=== PATIENT | female | born 1970 | race Caucasian/White ===

== ENCOUNTER 2018-05-08 20:11 | Emergency (ER) | payer MEDICAID ==
[~2018-05-08] VITALS: Ht 170.2 cm; Wt 82.0 kg
[~2018-05-08 20:11] MED LIST: BACL20TA PO; CLON2TAB11 PO; CYM20 PO; GABA-531 PO; OXYC-159 PO; RIVA20TA PO
[2018-05-08] MEDS ORDERED: HYDROMORPHONE HCL/PF 2MG/ML CPJ IV ONE (20:45)
[2018-05-08] MEDS ORDERED: DIPHENHYDRAMINE 25MG CAPSULE PO ONE (20:45)
[2018-05-08] MEDS ORDERED: ONDANSETRON HCL 4MG/2ML INJ IV ONE (20:45)
[2018-05-08] MEDS ORDERED: HYDROMORPHONE HCL/PF 2MG/ML CPJ IV SCH (21:30)
[2018-05-08] MEDS ORDERED: OXYCODONE HCL/ACETAMINOPHEN 5/325MG TABLET PO ONE ×2 (23:15→23:45)
[2018-05-08 23:21] LABS: CLARITY URINE CLEAR (CLEAR); COLOR URINE YELLOW (YELLOW); KETONES URINE NEGATIVE (NEGATIVE); LEUKOCYTE ESTERASE URINE 2+ (NEGATIVE); NITRITE URINE POSITIVE (NEGATIVE); OCCULT BLOOD URINE TRACE (NEGATIVE); PROTEIN URINE NEGATIVE (NEGATIVE); SPECIFIC GRAVITY URINE 1.008 (1.005-1.030)
[2018-05-08 23:57] VITALS: BP 110/64
== END 2018-05-09 04:04 | disposition home or self-care (01) ==
LOC: ER 20:11
DX: G57.93 Unspecified mononeuropathy of bilateral lower limbs (principal); G89.29 Other chronic pain; N39.0 Urinary tract infection, site not specified; E05.90 Thyrotoxicosis, unspecified without thyrotoxic crisis or storm; Z86.718 Personal history of other venous thrombosis and embolism; Z98.890 Other specified postprocedural states; Z79.899 Other long term (current) drug therapy
CPT/HCPCS: 81003; 96374; 96375; 99284; J1170; J2405; Q0163

== ENCOUNTER 2018-06-04 15:19 | Emergency (ER) | payer MEDICAID ==
[~2018-06-04] VITALS: Ht 167.6 cm; Wt 85.0 kg
[2018-06-04] MEDS ORDERED: OXYCODONE HCL/ACETAMINOPHEN 5/325MG TABLET PO ONE (17:15)
[2018-06-04] MEDS ORDERED: DEXAMETHASONE 10 MG/ML VIAL IM ONE (17:15)
[2018-06-04] MEDS ORDERED: DIAZEPAM 5 MG TABLET PO ONE (17:45)
[2018-06-04 18:39] LABS: CHLORIDE 106 mEq/L (98-107)
[2018-06-04 21:17] VITALS: BP 111/69
== END 2018-06-04 21:27 | disposition home or self-care (01) ==
LOC: ER 15:19
DX: G62.9 Polyneuropathy, unspecified (principal); G89.29 Other chronic pain; L97.419 Non-pressure chronic ulcer of right heel and midfoot with unspecified severity; E05.90 Thyrotoxicosis, unspecified without thyrotoxic crisis or storm; Z86.718 Personal history of other venous thrombosis and embolism; Z88.5 Allergy status to narcotic agent; Z79.899 Other long term (current) drug therapy; Z98.890 Other specified postprocedural states
CPT/HCPCS: 36415; 51702; 73650; 80048; 83735; 96372; 99284; J1100; A4315

== ENCOUNTER 2018-10-12 20:08 | Emergency (ER) | payer MEDICAID ==
[~2018-10-12] VITALS: Ht 165.1 cm; Wt 100.0 kg
[2018-10-12] MEDS ORDERED: MORPHINE SULFATE 4 MG/ML CPJ (NOT FOR IM USE) IV STA (21:30)
[2018-10-12] MEDS ORDERED: SODIUM CHLORIDE 0.9% 1,000 ML IV ONE (21:30)
[2018-10-12] MEDS ORDERED: DIPHENHYDRAMINE 50MG/ML VIAL IV ONE (21:30)
[2018-10-12 21:59] LABS: BASOPHILS % 0.7 % (0.0-2.0); EOSINOPHILS % 5.1 % (0.0-5.0); HEMATOCRIT. 29.9 % (36.0-48.0); HEMOGLOBIN. 9.6 g/dL (12.0-16.0); LYMPHOCYTES % 18.9 % (20.0-50.0); MEAN CORPUSCULAR HEMOGLOBIN 24.9 pg (28.0-32.0); MEAN CORPUSCULAR VOLUME 77.1 fL (81.0-99.0); MEAN PLATELET VOLUME 8.8 fl (7.4-10.4); MONOCYTES % 9.3 % (2.0-8.0); PLATELET 217 x1000/uL (130-400); RED BLOOD CELL COUNT 3.87 mill/uL (4.2-5.4); RED CELL DISTRIBUTION WIDTH 15.8 % (11.6-14.6)
[2018-10-12 22:06] LABS: CHLORIDE 110 mEq/L (98-107)
[2018-10-13] MEDS ORDERED: HYDROCODONE/ACETAMINOPHEN 5/325MG TABLET PO ONE (01:15)
[2018-10-13 04:35] VITALS: BP 130/67
== END 2018-10-13 04:31 | disposition home or self-care (01) ==
LOC: ER 20:08
DX: G89.29 Other chronic pain (principal); G82.20 Paraplegia, unspecified; E05.90 Thyrotoxicosis, unspecified without thyrotoxic crisis or storm; Z88.5 Allergy status to narcotic agent; Z86.718 Personal history of other venous thrombosis and embolism; Z79.01 Long term (current) use of anticoagulants; Z98.890 Other specified postprocedural states
CPT/HCPCS: 36415; 80048; 84443; 85025; 96374; 96375; 99283; J1200; J2270; J7030; Z7610

== ENCOUNTER 2018-10-27 17:33 | Inpatient (IN) | payer MEDICAID ==
[~2018-10-27] VITALS: Ht 160 cm; Wt 80.3 kg
[2018-10-27 19:57] LABS: HCG SCREEN NEGATIVE
[2018-10-27] MEDS ORDERED: DEXAMETHASONE 10 MG/ML VIAL IV ONE (20:15)
[2018-10-27] MEDS ORDERED: ACETAMINOPHEN 325MG TABLET PO ONE (20:15)
[2018-10-27 20:24] LABS: BASOPHILS % 0.7 % (0.0-2.0); EOSINOPHILS % 2.1 % (0.0-5.0); HEMATOCRIT. 31.2 % (36.0-48.0); HEMOGLOBIN. 9.9 g/dL (12.0-16.0); LYMPHOCYTES % 20.8 % (20.0-50.0); MEAN CORPUSCULAR HEMOGLOBIN 24.1 pg (28.0-32.0); MEAN PLATELET VOLUME 8.9 fl (7.4-10.4); MONOCYTES % 7.6 % (2.0-8.0); NEUTROPHILS % 68.8 % (40.0-76.0); PLATELET 240 x1000/uL (130-400); RED CELL DISTRIBUTION WIDTH 15.5 % (11.6-14.6)
[2018-10-27 20:25] LABS: CHLORIDE 109 mEq/L (98-107)
[2018-10-27 20:26] LABS: INR 1.1; PARTIAL THROMBOPLASTIN TIME 29.7 sec (23.4-31.0); PROTHROMBIN TIME 11.6 sec (9.6-11.0)
[2018-10-27] MEDS ORDERED: MORPHINE SULFATE 4 MG/ML CPJ (NOT FOR IM USE) IV ONE ×2 (21:15→22:00)
[2018-10-27] MEDS ORDERED: DIPHENHYDRAMINE 50MG/ML VIAL IV ONE (21:15)
[2018-10-27] MEDS ORDERED: ONDANSETRON HCL 4MG/2ML INJ IV ONE (21:15)
[2018-10-28] VITALS (7 sets, daily range): BP systolic 94–123; BP diastolic 48–68
[2018-10-28] MEDS ORDERED: MORPHINE SULFATE 4 MG/ML CPJ (NOT FOR IM USE) IV ONE (01:15)
[2018-10-28] MEDS ORDERED: TRAZ-212 MT (05:06)
[2018-10-28] MEDS ORDERED: HYDROMORPHONE HCL/PF 2MG/ML CPJ IV PRN (05:15)
[2018-10-28] MEDS: HYDROMORPHONE HCL/PF 2MG/ML CPJ IV PRN ×4 (09:18→22:13)
[2018-10-28] MEDS: DIPHENHYDRAMINE 50MG/ML VIAL IV PRN ×3 (10:54→23:08)
[2018-10-28] MEDS ORDERED: PNEUMOCOCCAL 23-VAL P-SAC VAC 0.5 ML IM ONE (12:00)
[2018-10-28] MEDS ORDERED: INFLUENZA VIRUS VACCINE(AFLURIA) 0.5ML SYR IM ONE (12:00)
[2018-10-28] MEDS: HYDROCODONE/ACETAMINOPHEN 5/325MG TABLET PO PRN (12:29)
[2018-10-28] MEDS: GABAPENTIN 300MG CAPSULE PO SCH ×2 (13:39→21:07)
[2018-10-28] MEDS: CLONAZEPAM 1MG TABLET PO SCH ×2 (13:39→16:58)
[2018-10-28] MEDS: BACLOFEN 20MG TABLET PO SCH ×2 (13:39→21:07)
[2018-10-28] MEDS: RIVAROXABAN 20 MG TABLET PO SCH (16:58)
[2018-10-28 17:55] LABS: TOTAL IRON BINDING CAPACITY 281 ug/dL (250-450)
[2018-10-28] MEDS ORDERED: TRAZODONE HCL 50MG TABLET PO SCH (21:00)
[2018-10-28] MEDS: TRAZODONE HCL 50MG TABLET PO SCH (21:07)
[2018-10-29] VITALS: BP 86/47
[2018-10-29] MEDS: HYDROMORPHONE HCL/PF 2MG/ML CPJ IV PRN ×6 (02:14→22:29)
[2018-10-29 04:00] VITALS: BP 92/42
[2018-10-29] MEDS: BACLOFEN 20MG TABLET PO SCH ×3 (05:04→21:00)
[2018-10-29] MEDS: GABAPENTIN 300MG CAPSULE PO SCH ×3 (05:04→21:00)
[2018-10-29] MEDS: DIPHENHYDRAMINE 50MG/ML VIAL IV PRN ×4 (05:04→22:59)
[2018-10-29 07:01] LABS: CHLORIDE 105 mEq/L (98-107)
[2018-10-29 07:03] LABS: BASOPHILS % 1.2 % (0.0-2.0); EOSINOPHILS % 0.5 % (0.0-5.0); HEMATOCRIT. 30.9 % (36.0-48.0); HEMOGLOBIN. 9.8 g/dL (12.0-16.0); LYMPHOCYTES % 28.5 % (20.0-50.0); MEAN CORPUSCULAR HEMOGLOBIN 24.4 pg (28.0-32.0); MEAN CORPUSCULAR VOLUME 77.3 fL (81.0-99.0); MONOCYTES % 9.9 % (2.0-8.0); NEUTROPHILS % 59.9 % (40.0-76.0); PLATELET 223 x1000/uL (130-400); RED BLOOD CELL COUNT 3.99 mill/uL (4.2-5.4); RED CELL DISTRIBUTION WIDTH 15.9 % (11.6-14.6)
[2018-10-29 08:00] VITALS: BP 105/53
[2018-10-29] MEDS: DULOXETINE HCL 20MG DR CAPSULE PO SCH (08:14)
[2018-10-29] MEDS: CLONAZEPAM 1MG TABLET PO SCH ×2 (08:14→17:07)
[2018-10-29 12:00] VITALS: BP 117/59
[2018-10-29 16:00] VITALS: BP 104/61
[2018-10-29] MEDS ORDERED: GABA-531 PO (16:38)
[2018-10-29] MEDS ORDERED: OXYC-515 PO (16:43)
[2018-10-29] MEDS: RIVAROXABAN 20 MG TABLET PO SCH (17:07)
[2018-10-29 20:00] VITALS: BP 98/52
[2018-10-29] MEDS: TRAZODONE HCL 50MG TABLET PO SCH (20:59)
[2018-10-30] VITALS: BP 97/56
[2018-10-30] MEDS: HYDROMORPHONE HCL/PF 2MG/ML CPJ IV PRN ×6 (02:44→22:36)
[2018-10-30 04:00] VITALS: BP 99/55
[2018-10-30] MEDS: DIPHENHYDRAMINE 50MG/ML VIAL IV PRN ×4 (05:01→22:54)
[2018-10-30] MEDS: GABAPENTIN 300MG CAPSULE PO SCH ×3 (05:01→22:30)
[2018-10-30] MEDS: BACLOFEN 20MG TABLET PO SCH ×3 (05:01→22:30)
[2018-10-30 06:42] LABS: BASOPHILS % 0.8 % (0.0-2.0); EOSINOPHILS % 1.9 % (0.0-5.0); HEMATOCRIT. 30.7 % (36.0-48.0); HEMOGLOBIN. 9.8 g/dL (12.0-16.0); MEAN CORPUSCULAR HEMOGLOBIN 24.4 pg (28.0-32.0); MEAN CORPUSCULAR VOLUME 76.3 fL (81.0-99.0); MEAN PLATELET VOLUME 9.2 fl (7.4-10.4); MONOCYTES % 10.4 % (2.0-8.0); NEUTROPHILS % 59.9 % (40.0-76.0); PLATELET 233 x1000/uL (130-400); RED BLOOD CELL COUNT 4.02 mill/uL (4.2-5.4); RED CELL DISTRIBUTION WIDTH 15.7 % (11.6-14.6)
[2018-10-30 07:11] LABS: CHLORIDE 103 mEq/L (98-107)
[2018-10-30 08:00] VITALS: BP 111/63
[2018-10-30] MEDS: CLONAZEPAM 1MG TABLET PO SCH ×2 (09:42→16:00)
[2018-10-30] MEDS: DULOXETINE HCL 20MG DR CAPSULE PO SCH (09:42)
[2018-10-30 11:43] VITALS: BP 106/56
[2018-10-30 15:33] VITALS: BP 116/59
[2018-10-30] MEDS: RIVAROXABAN 20 MG TABLET PO SCH (16:00)
[2018-10-30 20:00] VITALS: BP 112/52
[2018-10-30] MEDS: HYDROCODONE/ACETAMINOPHEN 5/325MG TABLET PO PRN (20:34)
[2018-10-30] MEDS: TRAZODONE HCL 50MG TABLET PO SCH (20:34)
[2018-10-31] VITALS (7 sets, daily range): BP systolic 98–115; BP diastolic 50–73
[2018-10-31] MEDS: HYDROMORPHONE HCL/PF 2MG/ML CPJ IV PRN ×2 (02:45→06:47)
[2018-10-31] MEDS: DIPHENHYDRAMINE 50MG/ML VIAL IV PRN ×3 (05:12→19:00)
[2018-10-31] MEDS: GABAPENTIN 300MG CAPSULE PO SCH ×3 (05:12→21:23)
[2018-10-31] MEDS: BACLOFEN 20MG TABLET PO SCH ×3 (05:12→21:23)
[2018-10-31 06:10] LABS: EOSINOPHILS % 3.8 % (0.0-5.0); HEMATOCRIT. 31.1 % (36.0-48.0); MEAN CORPUSCULAR HEMOGLOBIN 24.7 pg (28.0-32.0); MEAN CORPUSCULAR VOLUME 77.1 fL (81.0-99.0); MEAN PLATELET VOLUME 9.3 fl (7.4-10.4); MONOCYTES % 10.3 % (2.0-8.0); NEUTROPHILS % 56.9 % (40.0-76.0); PLATELET 224 x1000/uL (130-400); RED BLOOD CELL COUNT 4.04 mill/uL (4.2-5.4); RED CELL DISTRIBUTION WIDTH 15.7 % (11.6-14.6)
[2018-10-31 06:16] LABS: CHLORIDE 101 mEq/L (98-107)
[2018-10-31] MEDS ORDERED: HYDROCODONE/ACETAMINOPHEN 5/325MG TABLET PO PRN (08:45)
[2018-10-31] MEDS ORDERED: BISACODYL 5MG TABLET PO PRN (09:00)
[2018-10-31] MEDS ORDERED: BISACODYL 10MG SUPP PR PRN (09:00)
[2018-10-31] MEDS: CLONAZEPAM 1MG TABLET PO SCH ×2 (09:52→18:14)
[2018-10-31] MEDS: DULOXETINE HCL 20MG DR CAPSULE PO SCH (09:52)
[2018-10-31] MEDS ORDERED: OXYCODONE HCL/ACETAMINOPHEN 5/325MG TABLET PO PRN (11:45)
[2018-10-31] MEDS ORDERED: FERR325T6 MT (13:16)
[2018-10-31] MEDS ORDERED: BISA5TAB10 PO (13:16)
[2018-10-31] MEDS ORDERED: DOCU100T MT (13:16)
[2018-10-31] MEDS ORDERED: OXYCODONE HCL/ACETAMINOPHEN 5/325MG TABLET PO NR (16:45)
[2018-10-31] MEDS: RIVAROXABAN 20 MG TABLET PO SCH (18:14)
[2018-10-31] MEDS: TRAZODONE HCL 50MG TABLET PO SCH (21:18)
== END 2018-10-31 23:31 | disposition home or self-care (01) | DRG 347 ==
LOC: ER 17:33 → 6EST 10-28 02:09 → EDBEDREQTM 10-28 02:13 → EDBEDREQ 10-28 02:13 → ENRESERV 10-28 02:37
PROVIDERS: ADMIT Internal Medicine; ATTEND Internal Medicine
DX: M54.5 Low back pain (principal); E87.8 Other disorders of electrolyte and fluid balance, not elsewhere classified; D50.9 Iron deficiency anemia, unspecified; G89.29 Other chronic pain; F41.9 Anxiety disorder, unspecified; E05.90 Thyrotoxicosis, unspecified without thyrotoxic crisis or storm; G83.14 Monoplegia of lower limb affecting left nondominant side; G83.11 Monoplegia of lower limb affecting right dominant side; Z98.891 History of uterine scar from previous surgery; Z79.899 Other long term (current) drug therapy; Z79.01 Long term (current) use of anticoagulants; Z86.718 Personal history of other venous thrombosis and embolism
CPT/HCPCS: 36415; 72148; 80048; 82728; 83540; 83550; 84703; 90686; 90732; 96374; 96375; 99285; C1893; J1100; J1170; J1200; J2270; J2405; A4315